=== PATIENT | female | born 2000 | race Caucasian/White ===

== ENCOUNTER 2022-02-16 09:05 | Day surgery (SDC) | payer BC ==
[~2022-02-16] VITALS: Ht 167.6 cm; Wt 79.3 kg
[~2022-02-16 09:05] MED LIST: HYDR50TA70 PO; NS 1,000 ML IV ONE; SERT25TA21 PO
[2022-02-16] MEDS ORDERED: propofoL 200 MG/20 ML VIAL As Ordered ONE (09:55)
[2022-02-16 10:37] VITALS: BP 102/61
== END 2022-02-16 10:52 | disposition home or self-care (01) ==
LOC: M OPP 09:05
PROVIDERS: ATTEND Internal Medicine Gastroenterology
DX: K58.0 Irritable bowel syndrome with diarrhea (principal); K64.8 Other hemorrhoids; Z79.899 Other long term (current) drug therapy; Z88.0 Allergy status to penicillin; Z91.018 Allergy to other foods; Z91.040 Latex allergy status; F32.9 Major depressive disorder, single episode, unspecified; F41.9 Anxiety disorder, unspecified; G43.909 Migraine, unspecified, not intractable, without status migrainosus